=== PATIENT | male | born 1995 | race Caucasian/White ===

== ENCOUNTER 2024-05-11 02:49 | Emergency (ER) | payer OTHER ==
[~2024-05-11] VITALS: Ht 172.7 cm; Wt 85.0 kg
--- NOTE | 2024-05-11 03:43 | ED.PDOC ---
Psychiatric HPI Comments 28 year old male who came to ER due to mental health issues. Patient is homeless, does have history of schizophrenia and depression. Patient has not been taking his medications regularly. Denies being suicidal. Patient not a very good informant, with word salad, incoherent and confused and disoriented, staring blankly at this time. Chief Complaint: Mental Health Time Seen by MD: 03:41 Reviewed Notes: Nurses Notes Information Source: Patient Mode of Arrival: Ambulatory Severity: Unable to Care for Self, Unable to Control Self Severity of Pain: Moderate Severity of Mental Status: Moderate Severity of Symptoms: Moderate Timing: Hours Duration: Since onset Presents with: Unclear Thinking, Bizarre Behavior Circumstance: Medical Clearance History of: Depression, Anxiety, Schizophrenia Associated signs and symptoms: Depression, Hopeless, Anxiety, Confusion Past Medical History PAST MEDICAL HISTORY: Depression, Schizophrenia Surgical History: Pt Confused Family History Family History: Pt Confused Social History Smoker: Pt Confused Alcohol: Pt Confused Drugs: Pt Confused Lives In: Homeless Unable to Obtain due to: Altered Mental Status Physical Exam General Appearance: No Apparent Distress, Normal HEENT: Normal ENT Inspection, Pharynx Normal, TMs Normal Neck: Full Range of Motion, Non-Tender, Normal, Normal Inspection Respiratory: Chest Non-Tender, Lungs Clear, No Accessory Muscle Use, No Respiratory Distress, Normal Breath Sounds Cardiovascular: No Edema, No JVD, No Murmur, No Gallop, Normal Peripheral Pulses, Regular Rate/Rhythm Breast Exam: Deferred Gastrointestinal: No Organomegaly, Non Tender, No Pulsatile Mass, Normal Bowel Sounds, Soft Genitalia: Deferred Pelvic: Deferred Rectal: Deferred Extremities: No calf tenderness, Normal capillary refill, Normal inspection, Normal range of motion, Non-tender, No pedal edema Musculoskeletal : Apperance: Normal Neurologic: Alert, lawn and garden technician II-XII nml as Tested, No Motor Deficits, Normal Affect, Normal Mood, No Sensory Deficits Cerebellar Function: Normal Reflexes: Normal Skin: Dry, Normal Color, Warm Lymphatic: No Adenopathy Was a procedure done? Was a procedure done?: No Psych Differential Dx Psych. Differential Dx: Anxiety, Bipolar Disorder, Depression, Panic Disorder, Schizoprenia X-Ray, Labs, Meds, VS Vital Signs Date Time Temp Pulse Resp B/P (MAP) Pulse Ox O2 Delivery O2 Flow Rate FiO2 05/11/24 03:33 99.0 115 18 133/82 (99) 96 Lab Test 05/11/24 04:10 05/11/24 03:55 Range/Units White Blood Count 8.6 4.4-10.8 10^3/uL Red Blood Count 5.21 4.5-5.90 10^6/uL Hemoglobin 15.3 13.5-17.5 g/dL Hematocrit 46.5 41.0-53.0 % Mean Corpuscular Volume 89.2 80.0-100.0 fL Mean Corpuscular Hemoglobin 29.5 28.0-32.0 pg Mean Corpuscular Hemoglobin Concent 33.0 32.0-36.0 g/dL Red Cell Distribution Width 15.9 H 11.8-14.3 % Platelet Count 414 140-450 10^3/uL Mean Platelet Volume 6.9 6.9-10.8 fL Neutrophils (%) (Auto) 72.1 37.0-80.0 % Lymphocytes (%) (Auto) 19.5 10.0-50.0 % Monocytes (%) (Auto) 6.6 0.0-12.0 % Eosinophils (%) (Auto) 1.2 0.0-7.0 % Basophils (%) (Auto) 0.6 0.0-2.0 % Neutrophils # (Auto) 6.2 1.6-8.6 10 ^3/uL Lymphocytes # (Auto) 1.7 0.4-5.4 10 ^3/uL Monocytes # (Auto) 0.6 0-1.3 10 ^3/uL Eosinophils # (Auto) 0.1 0-0.8 10 ^3/uL Basophils # (Auto) 0.1 0-0.2 10 ^3/uL Nucleated Red Blood Cells 0.1 % Sodium Level 138 136-145 mmol/L Potassium Level 4.1 3.5-5.1 mmol/L Chloride Level 102 98-107 mmol/L Carbon Dioxide Level 26 20-31 mmol/L Anion Gap 10 5-15 Blood Urea Nitrogen 20 9-23 mg/dL Creatinine 0.94 0.700-1.30 mg/dL Glomerular Filtration Rate Calc 113 >90 mL/min BUN/Creatinine Ratio 21.3 H 10.0-20.0 Serum Glucose 103 74-106 mg/dL Calcium Level 10.7 H 8.7-10.4 mg/dL Salicylates Level < 3.0 -30 mg/dL Acetaminophen Level < 2.0 L 10.0-20.0 UG/ML Plasma/Serum Blood Alcohol < 3.0 <10 mg/dL Urine Color Yellow Yellow Urine Clarity Clear Clear Urine pH 5.5 5.0-9.0 Urine Specific [place] 1.032 1.001-1.035 Urine Protein Trace H Negative Urine Ketones 3+ H Negative Urine Blood 2+ H Negative /uL Urine Nitrite Negative Negative Urine Bilirubin Negative Negative Urine Urobilinogen 2 H Negative mg/dL Urine Leukocyte Esterase Negative Negative /uL Urine RBC 3 0 - 3 /hpf Urine WBC 1 0 - 3 /hpf Urine Squamous Epithelial Cells Few <5 /hpf Urine Bacteria None seen None Seen /hpf Urine Hyaline Casts Mod 0 - 2 /lpf Urine Mucus Few None Seen Urine Glucose Normal Normal mg/dL Urine Opiates Screen Neg NEGATIVE Urine Fentanyl Screen Neg NEGATIVE Urine Barbiturates Screen Neg NEGATIVE Urine Phencyclidine Screen Neg NEGATIVE Urine Amphetamines Screen Pos NEGATIVE Urine Benzodiazepines Screen Neg NEGATIVE Urine Cocaine Screen Neg NEGATIVE Urine Cannabinoids Screen Neg NEGATIVE Time of 1ST Reevaluation: 03:37 Reevaluation 1ST: Unchanged Patient Education/Counseling: Diagnosis, Treatment Family Education/Counseling: No Family Present Departure 1 Departure Time of Disposition: 05:37 (Patient is medically cleared. Patient is currently psychotic. We will place a psych consult.) Impression: Primary Impression: Psychosis Qualified Codes: F29 - Unspecified psychosis not due to a substance or known physiological condition Disposition: 30 STILL A PATIENT Condition: Serious Critical Care Note Critical Care Time?: No Stability Stability form required: No Heart Score Heart Score: Heart Score Response (Comments) Value History N/A 0 EKG N/A 0 Age N/A 0 Risk Factors N/A 0 Troponin N/A 0 Total 0 I personally scribed for MINERVA KINCAID MD ([email or web address]) on 05/11/24 at 03:43. Electronically submitted by Wilian Amaro ([email or web address]). MINERVA KINCAID MD May 11, 2024 03:43
[2024-05-11 03:56] LABS: Urine Bacteria None Seen /hpf (None Seen)
[2024-05-11 04:07] LABS: Urine Blood 2+ /uL (Negative); Urine Clarity Clear (Clear); Urine Color Yellow (Yellow); Urine Hyaline Cast MOD /lpf (0 - 2); Urine Mucus FEW (None Seen); Urine Protein, UAD TRACE (Negative); Urine Specific Gravity 1.032 (1.001-1.035); Urine Urobilinogen 2 mg/dL (Negative); Urine WBC 1 /hpf (0 - 3); Urine pH 5.5 (5.0-9.0)
[2024-05-11 04:17] LABS: Cannabinoid Screen, Urine Neg (NEGATIVE)
[2024-05-11 04:18] LABS: Basophils # (auto) 0.1 10 ^3/uL (0-0.2); Basophils % (auto) 0.6 % (0.0-2.0); Eosinophils # (auto) 0.1 10 ^3/uL (0-0.8); Eosinophils % (auto) 1.2 % (0.0-7.0); Hematocrit 46.5 % (41.0-53.0); Hemoglobin 15.3 g/dL (13.5-17.5); Lymphocytes # (auto) 1.7 10 ^3/uL (0.4-5.4); Lymphocytes % (auto) 19.5 % (10.0-50.0); Mean Corpuscular Hemoglobin 29.5 pg (28.0-32.0); Mean Corpuscular Volume 89.2 fL (80.0-100.0); Monocytes # (auto) 0.6 10 ^3/uL (0-1.3); Monocytes % (auto) 6.6 % (0.0-12.0); Neutrophils # (auto) 6.2 10 ^3/uL (1.6-8.6); Neutrophils % (auto) 72.1 % (37.0-80.0); Nucleated Red Blood Cells % 0.1 %; Platelet Count (auto) 414 10^3/uL (140-450); Red Blood Cells 5.21 10^6/uL (4.5-5.90); Red Cell Distribution Width 15.9 % (11.8-14.3); White Blood Cell 8.6 10^3/uL (4.4-10.8)
[2024-05-11 04:22] LABS: Amphetamine Screen, Urine Pos (NEGATIVE); Barbiturate Scree,Urine Neg (NEGATIVE); Benzodiazephine Screen, Urine Neg (NEGATIVE); Cocaine Screen, Urine Neg (NEGATIVE); Opiate Scree,Urine Neg (NEGATIVE); Phencyclidine Screen, Urine Neg (NEGATIVE)
[2024-05-11 04:33] LABS: Chloride 102 mmol/L (98-107); Potassium 4.1 mmol/L (3.5-5.1); Sodium 138 mmol/L (136-145)
[2024-05-11 04:34] LABS: Anion Gap 10 (5-15); Carbon Dioxide 26 mmol/L (20-31)
[2024-05-11 04:39] LABS: BUN/Creatinine Ratio 21.3 (10.0-20.0); Blood Urea Nitrogen 20 mg/dL (9-23); Glucose 103 mg/dL (74-106)
[2024-05-11 04:49] LABS: Salicylate < 3.0 mg/dL (-30)
[2024-05-11 04:50] LABS: Blood Alcohol < 3.0 mg/dL (<10); Calcium 10.7 mg/dL (8.7-10.4)
[2024-05-11 05:09] LABS: Acetaminophen < 2.0 UG/ML (10.0-20.0)
[2024-05-11 07:43] VITALS: PULSE 110; RESP 16; O2SAT 98
--- NOTE | 2024-05-11 09:31 | DVHINCON2 ---
Date of Service if different f: May 11, 2024 Consultation ([facility]) Progress: Declining Labs Laboratory Tests Test 05/11/24 03:55 05/11/24 04:10 Urine Color Yellow (Yellow) Urine Clarity Clear (Clear) Urine pH 5.5 (5.0-9.0) Urine Specific [place] 1.032 (1.001-1.035) Urine Protein Trace (Negative) Urine Ketones 3+ (Negative) Urine Blood 2+ /uL (Negative) Urine Nitrite Negative (Negative) Urine Bilirubin Negative (Negative) Urine Urobilinogen 2 mg/dL (Negative) Urine Leukocyte Esterase Negative /uL (Negative) Urine RBC 3 /hpf (0 - 3) Urine WBC 1 /hpf (0 - 3) Urine Squamous Epithelial Cells Few /hpf (<5) Urine Bacteria None seen /hpf (None Seen) Urine Hyaline Casts Mod /lpf (0 - 2) Urine Mucus Few (None Seen) Urine Glucose Normal mg/dL (Normal) Urine Opiates Screen Neg (NEGATIVE) Urine Fentanyl Screen Neg (NEGATIVE) Urine Barbiturates Screen Neg (NEGATIVE) Urine Phencyclidine Screen Neg (NEGATIVE) Urine Amphetamines Screen Pos (NEGATIVE) Urine Benzodiazepines Screen Neg (NEGATIVE) Urine Cocaine Screen Neg (NEGATIVE) Urine Cannabinoids Screen Neg (NEGATIVE) White Blood Count 8.6 10^3/uL (4.4-10.8) Red Blood Count 5.21 10^6/uL (4.5-5.90) Hemoglobin 15.3 g/dL (13.5-17.5) Hematocrit 46.5 % (41.0-53.0) Mean Corpuscular Volume 89.2 fL (80.0-100.0) Mean Corpuscular Hemoglobin 29.5 pg (28.0-32.0) Mean Corpuscular Hemoglobin Concent 33.0 g/dL (32.0-36.0) Red Cell Distribution Width 15.9 % (11.8-14.3) Platelet Count 414 10^3/uL (140-450) Mean Platelet Volume 6.9 fL (6.9-10.8) Neutrophils (%) (Auto) 72.1 % (37.0-80.0) Lymphocytes (%) (Auto) 19.5 % (10.0-50.0) Monocytes (%) (Auto) 6.6 % (0.0-12.0) Eosinophils (%) (Auto) 1.2 % (0.0-7.0) Basophils (%) (Auto) 0.6 % (0.0-2.0) Neutrophils # (Auto) 6.2 10 ^3/uL (1.6-8.6) Lymphocytes # (Auto) 1.7 10 ^3/uL (0.4-5.4) Monocytes # (Auto) 0.6 10 ^3/uL (0-1.3) Eosinophils # (Auto) 0.1 10 ^3/uL (0-0.8) Basophils # (Auto) 0.1 10 ^3/uL (0-0.2) Nucleated Red Blood Cells 0.1 % Sodium Level 138 mmol/L (136-145) Potassium Level 4.1 mmol/L (3.5-5.1) Chloride Level 102 mmol/L (98-107) Carbon Dioxide Level 26 mmol/L (20-31) Anion Gap 10 (5-15) Blood Urea Nitrogen 20 mg/dL (9-23) Creatinine 0.94 mg/dL (0.700-1.30) Glomerular Filtration Rate Calc 113 mL/min (>90) BUN/Creatinine Ratio 21.3 (10.0-20.0) Serum Glucose 103 mg/dL (74-106) Calcium Level 10.7 mg/dL (8.7-10.4) Salicylates Level < 3.0 mg/dL (-30) Acetaminophen Level < 2.0 UG/ML (10.0-20.0) Plasma/Serum Blood Alcohol < 3.0 mg/dL (<10) Appetite: Poor Side effects of medications: No Appearance: Stated age Psychomotor activity: Retarted Behavioral: Withdrawn Eye contact: Limited Speech: Slowed, Mumbled Affect: Flat Mood: Anxious Thought processes: Linear/Goal-directed, Disorganized Thought content: Hallucinations, Paucity of thoughts Plan for (Suicide) Unable to assess. Plan for (Homicide) Unable to assess. 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 H/o Schizophrenia H/o Bipolar disorder. Plan : The pt has significant thought blocking and struggles with communicating what's going through his mind. He can barely complete a single thoughts, is visibly internally preoccupied. Has healing scratch cortes on his face and nose. Admitted to using meth for the last 3 days and has past diagnoses as above. Currently, it is impossible to ascertain if the current presentation is d/t stimulant use or psychiatric symptom return/decompensation. It is therefore recommended to Dr. Stephens, that haldol 5 mg and cognetin 1 mg PO be given now and pt reassess in about 2 - 3 hours to see if a 5150 remains a reasonable next step and call the insulation worker interior surface for that assessment, should the pt either worsen or not improve at all with the haldol. If the pt ends up staying in the ED overnight Haldol 5 mg + Cogentin 1 mg PO BID should be continued and the pt discharged with a precription for these. Dr. Stephens in agreement with plan. History of Present Illness Reason for Consult : Altered mental status, hx of schizophrenia. HPI : Pt says he doesn't know what to do. Pt says that he came to the hospital to try to get his meds. Pt admits to using for the last 3 days. Pt stopped taking meds 4 months ago. Doesn't know what to do anymore. Pt says he is hallucinating voices of people that aren't there. Pt says that he is trying to keep evil things back. Regarding SI and HI, pt mumbles incoherently. Pt struggles with anxwering questions, looks obviously anxious and has slowness of movement. Past Psychiatric History : Zyprexa doesn't know the dose. Admitted to psych before - tried getting admitted to one last night. Last admitted 4 -6 months ago, 6 times in lifetime. Pt has been diagnosed with bipolar disorder, schizophrenia and depressions at different times. Past Medical History : Cannot answer. Social History : Homeless, unemployed. Assessment/Diagnosis/Plan Reviewed: Care Plan, Labs, Medications TIGRE WELSH MD May 11, 2024 09:25
[2024-05-11] MEDS: HALOPERIDOL LACTATE 5 MG/ML INJ VIAL IM ONE (12:45)
[2024-05-11] MEDS: BENZTROPINE MESYLATE (1MG/ML) 2ML VIAL IM ONE (12:46)
[2024-05-11 19:47] VITALS: PULSE 81; RESP 16; O2SAT 97
--- NOTE | 2024-05-12 05:58 | ED.PDOC ---
Departure 1 Departure Time of Disposition: 05:57 (Psychiatry recommended reassessment of the patient after he metabolized some of the substance CHF. We will re-consult psych and have them re-evaluate patient this morning .patient is otherwise resting comfortably in bed) Impression: Primary Impression: Psychosis Qualified Codes: F29 - Unspecified psychosis not due to a substance or known physiological condition Disposition: 30 STILL A PATIENT Condition: MINERVA Wilcox MD May 12, 2024 05:58
[2024-05-12 07:30] VITALS: PULSE 95; RESP 18; O2SAT 95
--- NOTE | 2024-05-12 10:25 | TELE.CONS ---
05/12/24 1005 The patient was seen and evaluated at [facility] ED via telepsychiatry platform. 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 At that time, he was very disorganized with his answers. Today, he reported "I'm feeling a lot better." He stated he doesn't want to use meth anymore. He reported he went to rehab in the past. He was at [facility] for about a week. He said he was doing okay there and went outside and ran into people who were using and starting using himself. He said he doesn't want to live with this issue and feels remorse for using. He stated he still has persistent thoughts of harming himself. He also feels worthless, hopeless and out of control. He reported having auditory hallucinations in the past, but does not have them this morning. He noted he was on Zyprexa 10mg BID in the past but is not sure when he last took it. He denied having HI/AVH. MSE: Alert, oriented male sitting in chair cooperative and forthcoming speech-regular rate, rhythm Mood-depressed, scared Affect-tearful, depressed, labile congruent Tht process-linear and goal directed Tht Content- PERSISTENT SUICIDAL IDEATION. Denied having homicidal ideation, plan or intent. 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 He is very depressed and suicidal and hopeless and meets criteria for involuntary hospitalization on the basis of danger to self. He may benefit from starting back on zyprexa which he took as an outpatient in the past. Plan: 1. Transfer to behavioral health unit when bed available. 2. Legal-initiate involuntary 5150 hold for danger to self. Monitor for safey. 3. Medications- recommend discontinuing Haldol and cogentin and start Zyprexa 10mg qhs and Zyprexa 5mg qam. 4. Follow up with outpatient mental health for medication management and therapy. Recommend getting into substance abuse program and refraining from meth use. 5. Case discussed with ED physician. 5. Please contact psychiatry if further follow up or reevaluation is desired. Yes KEANU GORDON MD May 12, 2024 10:25
[2024-05-12] MEDS: OLANZapine 5 MG TAB PO SCH ×2 (13:16→22:39)
--- NOTE | 2024-05-12 17:54 | ED.PDOC ---
ADDENDUM ADDENDUM ADDENDUM No adverse events occurred to patient under my care Discuss with Dr. Mojica regarding the patient discontinued other psychiatric medication and start Zyprexa (10mg at night and 5mg at the morning) placement in psych facility discuss case with and handed over patient to oncoming physician at 1800. I personally scribed for SUKI LYN MD ([email or web address]) on 05/12/24 at 17:54. Electronically submitted by Reynaldo Varghese ([email or web address]). SUKI LYN MD May 12, 2024 17:54
[2024-05-13 08:00] VITALS: PULSE 74; RESP 14; O2SAT 98
--- NOTE | 2024-05-13 11:13 | ED.PDOC ---
Departure 1 Departure Time of Disposition: 11:13 (Patient still medically stable. Patient accepted as a transfer.) Impression: Primary Impression: Psychosis Qualified Codes: F29 - Unspecified psychosis not due to a substance or known physiological condition [facility] Condition: Serious MINERVA KINCAID MD May 13, 2024 11:13
[2024-05-13 13:15] VITALS: BP 126/75; PULSE 96; RESP 16; TEMP 97.8; O2SAT 98
== END 2024-05-13 13:19 | disposition short-term general hospital (02) ==
LOC: ER 02:49
DX: F29 Unspecified psychosis not due to a substance or known physiological condition (principal)
CPT/HCPCS: 36415; 80048; 80307; 80320; 80329; 81001; 85025; 96372; 99285; J0515; J1630